=== PATIENT | female | born 1930 | race Caucasian/White ===

== ENCOUNTER 2017-06-18 08:24 | Inpatient (IN) | payer MEDICAID, OTHER ==
[~2017-06-18 08:24] MED LIST: NS 1000 ML 1,000 ML ONE
[2017-06-18 08:39] VITALS: BMI 14.5
--- NOTE | 2017-06-18 08:39 | DR.GENAD ---
HPI - HPI Comment HPI Comment: FELL AT HOME MONDAY. SHE IS NOT ABLE TO GET UP AND GO SINCE FALL. SHE IS WEAK. PATIENT IS BLIND. - Complaint/Symptoms Chief Complaint Doctors Comments: FALL, LOWER BACK PAIN. - Nurses notes reviewed Nurses Notes Review: Yes - Source History Provided: Patient, EMS - Mode of Arrival Mode of Arrival: Stretcher - Timing Came on: Suddenly - Duration Duration: Constant Duration: Days - Severity Severity: Moderate PMH - PMH Past Medical History: Arthritis, Hypertension Past Surgical History: Yes Surgical History: Appendectomy - Family History Family Medical History: Cancer, Hypertension - Social History Do you use any recreational Drugs:: No ROS - Review of Systems Constitutional: Weakness, Fatigue. negative: Chills, Fever Eyes: Other (BLIND). negative: Eye Pain, Discharge ENTM: Hearing Loss (DECREASE HEARING.). negative: Nose Discharge, Nose Congestion, Throat Pain Respiratoy: Short of Breath (ON EXERTION). negative: Productive Cough, Non- Productive Cough, Wheezing, Hemoptysis Cardiovascular: Palpitations. negative: Edema Gastrointestinal/Abdominal: negative: Abdominal Pain, Diarrhea, Nausea, Vomiting Genitourinary: negative: Dysuria, Hematuria Neurological: Weakness, Dizziness Musculoskeletal: Back Pain, Muscle Pain, Back Integumentary: negative: Rash, Bruises Hematologic/Lymphatic: No Symptoms Reported Endocrine: No Symptoms Reported All Other Systems: Reviewed and Negative PE - Vital Signs Vitals: Temperature 98.4 F Pulse Rate 128 Respiratory Rate 19 Blood Pressure [Left Arm] 129/60 Blood Pressure [Right Arm] 130/58 Blood Pressure 129/93 O2 Sat by Pulse Oximetry 98 - General Limitations: Altered Mental Status General Appearance: Alert - Head Head Exam: Normal Inspection - Eyes Eye exam: Normal Appearance, Other (BLINDNESS). negative: Scleral Icterus, Conjunctival Injection, Periorbital Swelling, Periorbital Tenderness - ENT ENT Exam: Normal External Ear Exam, Other (DECREASE HEARING.) TM/Canal Exam: Bilateral Normal Nose Exam: Normal Nose Exam Mouth Exam: Normal Inspection Throat Exam: Normal Inspection - Neck Neck Exam: Trachea Midline, Tenderness, Meningismus - Chest Chest Inspection: Symmetric Chest Wall Rise - Respiratory Respiratory Exam: Normal Lung Sounds Bilat Respiratory Exam: Bilateral Rhonchi, Lower Rhonchi - Cardiovascular Cardiovascular Exam: Tachycardia - Abdominal Exam Abdominal Exam: Normal Bowel Sounds, Soft, Other (BLADDER DISTENDED) - Extremities Extremities Exam: Normal Inspection - Back Back Exam: Paraspinal Tenderness (LOWER BACK), Vertebral Tenderness (LOWER BACK) - Neurologic Neurological Exam: Alert, Oriented X3 - Psychiatric Psychiatric Exam: Anxious - Skin Skin Exam: Dry MDM - Differential Diagnosis Differential Diagnosis: DEHYDRATION, TN, CVA, Course - Treatment Treatment: SEE ORDERS. - Education/Counseling Education/Counseling: Patient, Education Educated On: Diagnosis ROR - Labs Reviewed Result Diagrams: 06/19/17 05:25 06/19/17 04:00 - XRAY XRAY Interpreted by: Radiologist XRAY Findings: REPORT DISCUSS WITH PATIENT. - EKG Rhythm: ST (EKG NOTED.) - Diagnosis Discharge Problem: Generalized weakness, Dehydration, Hypokalemia, Abnormal cardiac enzyme level Lower back pain Qualifiers: Chronicity: acute Back pain laterality: bilateral Sciatica presence: without sciatica Qualified Code(s): M54.5 - Low back pain - Discharge Plan Disposition: ADMITTED INPATIENT Condition: Stable - Follow ups/Referrals - Instructions
[2017-06-18 08:59] LABS: BASOPHILS # (AUTO) 0.1 X10^3/uL (0.0-0.1); BASOPHILS % (AUTO) 1.5 % (0.2-1.0); EOSINOPHILS % (AUTO) 0.1 % (0.9-2.9); HEMATOCRIT 45.2 % (36.0-47.0); HEMOGLOBIN 15.3 g/dL (12.0-16.0); LYMPHOCYTES # (AUTO) 1.2 X10^3/uL (1.3-2.9); LYMPHOCYTES % (AUTO) 15.3 % (21.0-51.0); MEAN CORPUSCULAR HEMOGLOBIN 29.8 pg (27.0-34.0); MEAN CORPUSCULAR HGB CONC 33.8 g/dL (33.0-35.0); MEAN PLATELET VOLUME 7.7 fL (7.4-11.0); MONOCYTES # (AUTO) 0.6 x10^3/uL (0.3-0.8); MONOCYTES % (AUTO) 8.3 % (0.0-13.0); NEUTROPHILS # (AUTO) 5.8 x10^3/uL (2.2-4.8); NEUTROPHILS % (AUTO) 74.8 % (42.0-75.0); PLATELET COUNT 356 X10^3/uL (150.0-450.0); RED BLOOD COUNT 5.13 X10^6/uL (3.5-5.4); RED CELL DISTRIBUTION WIDTH 13.4 % (11.6-16.5); WHITE BLOOD COUNT 7.7 X10^3/uL (3.6-10.0)
[2017-06-18 09:16] LABS: BILIRUBIN,URINE NEGATIVE (NEGATIVE); BLOOD/HEMOGLOBIN,URINE 2+ (NEGATIVE); GLUCOSE, URINE NEGATIVE (NEGATIVE); KETONES,URINE 4+ (NEGATIVE); LEUKOCYTE ESTERASE ,URINE NEGATIVE (NEGATIVE); NITRITES,URINE NEGATIVE (NEGATIVE); PROTEIN,URINE 3+ (NEGATIVE); UROBILINOGEN,URINE 1+ (NORMAL)
[2017-06-18 09:23] LABS: APPEARANCE,URINE CLEAR (CLEAR); BACTERIA,URINE NEGATIVE /HPF (NEGATIVE); COLOR,URINE YELLOW (YELLOW); RBC,URINE RARE /HPF (NEGATIVE); SQUAMOUS EPITHELIAL CELL,UR NEGATIVE /HPF (NEGATIVE)
[2017-06-18 09:24] LABS: MUCUS,URINE FEW /HPF (NEGATIVE)
[2017-06-18 09:34] LABS: ALANINE AMINOTRANSFERASE 23 Units/L (12-78); ALBUMIN 4.2 g/dL (3.4-5.0); ALKALINE PHOSPHATASE 72 Units/L (46-116); ASPARTATE AMINO TRANSFERASE 41 Units/L (15-37); BLOOD UREA NITROGEN 23 mg/dL (7-18); CALCIUM 10.1 mg/dL (8.5-10.1); CARBON DIOXIDE 16.3 mmol/L (21-32); CHLORIDE 110 mmol/L (98-107); CREATINE KINASE 132 Units/L (26-192); CREATININE 1.31 mg/dL (0.55-1.02); SODIUM 149 mmol/L (136-145); TOTAL PROTEIN 8.7 g/dL (6.4-8.2); TROPONIN I 0.05 ng/mL (0-1.5); eGFR BLACK RACES 50 (>60); eGFR NON BLACK RACES 41 (>60)
[2017-06-18 09:40] LABS: CREATINE KINASE MB 5.3 ng/mL (0-4.0)
--- NOTE | 2017-06-18 10:59 | CT ---
HISTORY: Fall, pain Study: CT brain without contrast Comparison: 04/07/2013 Technique: Multiple axial images of the brain were obtained from the skull base to the vertex without administra tion of IV contrast. Dose reduction techniques including Automated Exposure Control (AEC) and adjust ment of mA and kV were utilized. Findings: The exam is limited by patient's condition. There is chronic atrophy and nonspecific white matter hyp oattenuation likely related to microvascular ischemic changes. No evidence of acute hemorrhage, midl ine shift, mass effect or abnormal extra-axial fluid collection. The ventricular system is symmetric and nondilated. The soft tissues and osseous structures are unremarkable. The visualized paranasal sinuses are clear. IMPRESSION: 1.No acute intracranial abnormality. Reported By:
[2017-06-18] MEDS ORDERED: NS 1000 ML 1,000 ML IV SCH (11:00)
--- NOTE | 2017-06-18 11:03 | CT ---
HISTORY: Pain after fall Study: CT lumbar spine without contrast Comparison: Radiograph 12/01/2015 Technique: Multiple axial images of the lumbar spine without the administration of IV contrast. Sag ittal and coronal reformats were performed and reviewed. Dose reduction techniques including Automat ed Exposure Control (AEC) and adjustment of mA and kV were utilized. Findings: Alignment of the lumbar spine is maintained. There are chronic superior endplate depressions at T12, L1, and L5. The remaining vertebral body heights are preserved. The disc spaces are maintained.No s ignificant facet joint arthropathy. Prominent atherosclerotic disease of the aorta is noted. There i s a Nava catheter in place. IMPRESSION: 1. Chronic endplate depressions at T12, L1, and L5. No acute abnormality identified. Reported By:
--- NOTE | 2017-06-18 12:45 | RAD ---
Examination: Portable AP chest History: Fell, pain Findings: Transverse heart diameter is normal. There is a diffuse interstitial increase throughout valdo th lungs. There is no evidence for pneumothorax, superimposed consolidation or large pleural effusion . The mediastinum is not widened or deformed. The thoracic aorta is arteriosclerotic. Impression: Degenerative and age related findings. Bilateral interstitial process is consistent with chronic peribronchial thickening. Reported By:
--- NOTE | 2017-06-18 12:56 | RAD ---
Examination: Portable AP pelvis History: Fell Findings: A frontal view of the pelvis demonstrates no evidence for fracture, hip deformity, bone dinesh truction or pelvic asymmetry. Normal appearance of sacroiliac joints and symphysis pubis. The pelvic soft tissues are unremarkable. Impression: No acute injury identified. Specific hip views should be considered if clinically appropr iate. Reported By:
[2017-06-18 16:20] LABS: CKMB % 4.2 % (<4); TROPONIN I 0.07 ng/mL (0-1.5)
[2017-06-18 16:29] LABS: CREATINE KINASE MB 4.5 ng/mL (0-4.0)
[2017-06-18] MEDS: NS 1000 ML 1,000 ML IV SCH (16:38)
[2017-06-18 21:10] LABS: CKMB % 3.7 % (<4); CREATINE KINASE MB 3.8 ng/mL (0-4.0); TROPONIN I 0.07 ng/mL (0-1.5)
[2017-06-19] MEDS: NS 1000 ML 1,000 ML IV SCH ×4 (00:11→17:26)
[2017-06-19 04:31] LABS: BLOOD UREA NITROGEN 14 mg/dL (7-18); CALCIUM 8.4 mg/dL (8.5-10.1); CARBON DIOXIDE 23.8 mmol/L (21-32); COR NA(FOR HYPERGLY) 148 mmol/L (136-145); CREATININE 0.96 mg/dL (0.55-1.02); SODIUM 148 mmol/L (136-145); eGFR BLACK RACES > 60 (>60); eGFR NON BLACK RACES 59 (>60)
[2017-06-19 04:40] LABS: CHLORIDE 117 mmol/L (98-107)
[2017-06-19 05:01] LABS: ALANINE AMINOTRANSFERASE 16 Units/L (12-78); ALBUMIN 2.7 g/dL (3.4-5.0); ALKALINE PHOSPHATASE 47 Units/L (46-116); ASPARTATE AMINO TRANSFERASE 27 Units/L (15-37); COR CA(FOR HYPOALB) 9.4 mg/dL (8.5-10.1); MAGNESIUM 1.6 mg/dL (1.7-2.9); TOTAL PROTEIN 5.9 g/dL (6.4-8.2)
[2017-06-19] MEDS ORDERED: K-LYTE EFFERVESCENT PO PRN ×2 (05:31→12:22)
[2017-06-19] MEDS ORDERED: K-RIDER 10 MEQ/NS 100 ML 10 MEQ/100 ML BAG IV PRN (05:31)
[2017-06-19] MEDS ORDERED: POTASSIUM CHLORIDE LIQ 20 MEQ UDC PO PRN ×2 (05:31→12:22)
[2017-06-19] MEDS ORDERED: POTASSIUM CHL 40 MEQ/NS 0.45% 500 ML IV NR (06:00)
[2017-06-19] MEDS ORDERED: POTASSIUM CHL 60 MEQ/NS 0.45% 500 ML IV NR (06:00)
[2017-06-19] MEDS: MAG-OX TAB PO PRN (06:06)
[2017-06-19 06:11] LABS: BASOPHILS # (AUTO) 0.1 X10^3/uL (0.0-0.1); BASOPHILS % (AUTO) 0.8 % (0.2-1.0); EOSINOPHILS # (AUTO) 0.2 x10^3/uL (0.0-0.2); EOSINOPHILS % (AUTO) 2.8 % (0.9-2.9); HEMATOCRIT 34.7 % (36.0-47.0); LYMPHOCYTES # (AUTO) 1.3 X10^3/uL (1.3-2.9); LYMPHOCYTES % (AUTO) 20.8 % (21.0-51.0); MEAN CORPUSCULAR HEMOGLOBIN 30.2 pg (27.0-34.0); MEAN CORPUSCULAR HGB CONC 34.5 g/dL (33.0-35.0); MEAN CORPUSCULAR VOLUME 87.4 fL (80.0-100.0); MEAN PLATELET VOLUME 7.6 fL (7.4-11.0); MONOCYTES # (AUTO) 0.7 x10^3/uL (0.3-0.8); NEUTROPHILS # (AUTO) 4.1 x10^3/uL (2.2-4.8); NEUTROPHILS % (AUTO) 64.6 % (42.0-75.0); PLATELET COUNT 227 X10^3/uL (150.0-450.0); RED BLOOD COUNT 3.97 X10^6/uL (3.5-5.4); RED CELL DISTRIBUTION WIDTH 13.4 % (11.6-16.5); WHITE BLOOD COUNT 6.3 X10^3/uL (3.6-10.0)
[2017-06-19] MEDS ORDERED: POTASSIUM CHL 40 MEQ/NS 0.45% 500 ML IV PRN (12:22)
[2017-06-19] MEDS ORDERED: POTASSIUM CHL 60 MEQ/NS 0.45% 500 ML IV PRN (12:22)
[2017-06-19] MEDS: MAGNESIUM SULFATE 1 GM/100 mL PREMIX 1 GM/100 ML BAG IV PRN ×2 (12:29→13:28)
[2017-06-19] MEDS: K-RIDER 10 MEQ/NS 100 ML 10 MEQ/100 ML BAG IV PRN ×3 (13:28→16:17)
--- NOTE | 2017-06-19 17:26 | CT ---
HISTORY: Pain. Study: CT cervical and thoracic spine without contrast Comparison: Thoracic spine and cervical spine series dating back to December 01, 2015. Technique: Multiple axial images of the cervical and thoracic spine without administration of IV con trast. Sagittal and coronal reformats were performed and reviewed. Dose reduction techniques includi ng Automated Exposure Control (AEC) and adjustment of mA and kV were utilized. Findings: Severe reversal of the normal cervical lordosis, which may represent positioning versus muscle spasm. Multilevel moderate to severe degenerative changes of the cervical and thoracic spine. Remote compre ssion fractures of T11 and T12. No acute fracture or listhesis. Multilevel mild to severe neural fora patricia narrowing of the cervical spine. No significant neural foraminal narrowing of the thoracic spin e. No significant spinal canal stenosis. Vascular calcifications are seen of the carotid arteries. Bi apical scarring. 6 mm right upper lobe ground-glass opacity (series 8, image 48). Bibasilar scarring versus atelectasis. No suspicious pulmonary nodule, mass, focal consolidation, pleural effusion, or p neumothorax. Cardiomegaly with severe atherosclerotic vascular calcifications of the coronary arterie s. Remaining mediastinum is unremarkable. The left kidney is small, which may represent chronic renal disease. 2.9 cm simple appearing cysts within the right superior renal pole. 3.0 cm simple cyst with in the visualized left hepatic lobe. Remaining upper abdominal structures are unremarkable. IMPRESSION: 1. No acute osseous abnormality. 2. Chronic findings as above. 3. 6 mm right upper lobe ground-glass opacity. Recommend follow-up CT of the chest in 2-3 months to d ocument stability/resolution. 4. Other chronic findings as above. Reported By:
[2017-06-20] MEDS: NS 1000 ML 1,000 ML IV SCH (03:18)
[2017-06-20 06:11] LABS: ALANINE AMINOTRANSFERASE 25 Units/L (12-78); ALBUMIN 2.3 g/dL (3.4-5.0); ALKALINE PHOSPHATASE 46 Units/L (46-116); ASPARTATE AMINO TRANSFERASE 43 Units/L (15-37); BLOOD UREA NITROGEN 9 mg/dL (7-18); CALCIUM 7.7 mg/dL (8.5-10.1); CARBON DIOXIDE 22.1 mmol/L (21-32); COR CA(FOR HYPOALB) 9.1 mg/dL (8.5-10.1); CREATININE 0.67 mg/dL (0.55-1.02); MAGNESIUM 1.7 mg/dL (1.7-2.9); SODIUM 146 mmol/L (136-145); TOTAL PROTEIN 5.3 g/dL (6.4-8.2); eGFR BLACK RACES > 60 (>60); eGFR NON BLACK RACES > 60 (>60)
[2017-06-20 06:15] LABS: CHLORIDE 116 mmol/L (98-107)
[2017-06-20 06:27] LABS: BASOPHILS # (AUTO) 0.1 X10^3/uL (0.0-0.1); BASOPHILS % (AUTO) 0.8 % (0.2-1.0); EOSINOPHILS # (AUTO) 0.2 x10^3/uL (0.0-0.2); EOSINOPHILS % (AUTO) 3.3 % (0.9-2.9); HEMATOCRIT 31.3 % (36.0-47.0); HEMOGLOBIN 11.1 g/dL (12.0-16.0); LYMPHOCYTES # (AUTO) 1.5 X10^3/uL (1.3-2.9); LYMPHOCYTES % (AUTO) 22.6 % (21.0-51.0); MEAN CORPUSCULAR HEMOGLOBIN 30.6 pg (27.0-34.0); MEAN CORPUSCULAR HGB CONC 35.4 g/dL (33.0-35.0); MEAN CORPUSCULAR VOLUME 86.5 fL (80.0-100.0); MEAN PLATELET VOLUME 7.9 fL (7.4-11.0); MONOCYTES # (AUTO) 0.7 x10^3/uL (0.3-0.8); MONOCYTES % (AUTO) 10.1 % (0.0-13.0); NEUTROPHILS # (AUTO) 4.2 x10^3/uL (2.2-4.8); NEUTROPHILS % (AUTO) 63.2 % (42.0-75.0); PLATELET COUNT 194 X10^3/uL (150.0-450.0); RED BLOOD COUNT 3.62 X10^6/uL (3.5-5.4); RED CELL DISTRIBUTION WIDTH 13.5 % (11.6-16.5); WHITE BLOOD COUNT 6.7 X10^3/uL (3.6-10.0)
[2017-06-20] MEDS: K-RIDER 10 MEQ/NS 100 ML 10 MEQ/100 ML BAG IV PRN ×2 (06:37→15:31)
[2017-06-20] MEDS ORDERED: NS 1/2 1000 ML IV 1,000 ML IV ONE (18:09)
[2017-06-20] MEDS: NS 1/2 1000 ML IV 1,000 ML IV SCH (18:12)
[2017-06-20] MEDS: LOPRESSOR TAB 25 MG PO SCH (20:46)
[2017-06-21] MEDS ORDERED: NS 1/2 1000 ML IV 1,000 ML IV ONE (01:28)
[2017-06-21] MEDS: NS 1/2 1000 ML IV 1,000 ML IV SCH ×2 (02:09→15:33)
[2017-06-21 05:40] LABS: BASOPHILS % (AUTO) 0.4 % (0.2-1.0); EOSINOPHILS # (AUTO) 0.3 x10^3/uL (0.0-0.2); EOSINOPHILS % (AUTO) 4.4 % (0.9-2.9); HEMATOCRIT 32.5 % (36.0-47.0); HEMOGLOBIN 11.6 g/dL (12.0-16.0); LYMPHOCYTES # (AUTO) 1.4 X10^3/uL (1.3-2.9); LYMPHOCYTES % (AUTO) 19.3 % (21.0-51.0); MEAN CORPUSCULAR HEMOGLOBIN 30.6 pg (27.0-34.0); MEAN CORPUSCULAR HGB CONC 35.6 g/dL (33.0-35.0); MEAN CORPUSCULAR VOLUME 86.1 fL (80.0-100.0); MONOCYTES # (AUTO) 0.7 x10^3/uL (0.3-0.8); MONOCYTES % (AUTO) 9.9 % (0.0-13.0); NEUTROPHILS # (AUTO) 4.9 x10^3/uL (2.2-4.8); PLATELET COUNT 182 X10^3/uL (150.0-450.0); RED BLOOD COUNT 3.78 X10^6/uL (3.5-5.4); RED CELL DISTRIBUTION WIDTH 13.5 % (11.6-16.5); WHITE BLOOD COUNT 7.5 X10^3/uL (3.6-10.0)
[2017-06-21 05:43] LABS: ALANINE AMINOTRANSFERASE 32 Units/L (12-78); ALBUMIN 2.3 g/dL (3.4-5.0); ALKALINE PHOSPHATASE 53 Units/L (46-116); ASPARTATE AMINO TRANSFERASE 46 Units/L (15-37); BLOOD UREA NITROGEN 7 mg/dL (7-18); CALCIUM 7.7 mg/dL (8.5-10.1); CARBON DIOXIDE 24.4 mmol/L (21-32); CHLORIDE 109 mmol/L (98-107); COR CA(FOR HYPOALB) 9.1 mg/dL (8.5-10.1); CREATININE 0.68 mg/dL (0.55-1.02); SODIUM 142 mmol/L (136-145); TOTAL PROTEIN 5.4 g/dL (6.4-8.2); eGFR BLACK RACES > 60 (>60); eGFR NON BLACK RACES > 60 (>60)
[2017-06-21] MEDS: K-RIDER 10 MEQ/NS 100 ML 10 MEQ/100 ML BAG IV PRN ×4 (06:06→09:07)
[2017-06-21] MEDS: LOPRESSOR TAB 25 MG PO SCH (08:34)
[2017-06-21] MEDS: MAG-OX TAB PO PRN (08:35)
[2017-06-21] MEDS ORDERED: DULCOLAX SUPPOSITORY 10 MG RECTAL ONE (10:26)
[2017-06-21 16:06] VITALS: BP 144/65
== END 2017-06-21 16:10 | DRG 641 ==
LOC: ER 08:24 → MED/SURG 13:29
PROVIDERS: ADMIT Internal Medicine; ATTEND Internal Medicine
DX: E86.0 Dehydration (principal); R53.1 Weakness; W18.39XA Other fall on same level, initial encounter; M54.5 Low back pain; I10 Essential (primary) hypertension; M13.80 Other specified arthritis, unspecified site; R06.02 Shortness of breath; E87.6 Hypokalemia; R94.31 Abnormal electrocardiogram [ECG] [EKG]; M47.22 Other spondylosis with radiculopathy, cervical region; R62.7 Adult failure to thrive; R94.4 Abnormal results of kidney function studies; R26.89 Other abnormalities of gait and mobility; H54.7 Unspecified visual loss
CPT/HCPCS: 36415; 70450; 71010; 72125; 72128; 72131; 72170; 80053; 81001; 82550; 82553; 83735; 84132; 84484; 85025; 85610; 85730; 93005; 94760; 96365; 96367; 96374; 97535; 99221; 99284; A4216; A4222; J3480

== ENCOUNTER 2017-10-21 13:02 | Emergency (ER) | payer OTHER ==
[2017-10-21 13:08] VITALS: BP 149/66; BMI 21.4
--- NOTE | 2017-10-21 13:31 | DR.AMS ---
HPI - Time Seen Time seen: 13:20 - PCP Primary Care Physician: ARRON - Complaint Cheif Complaint Doctors Comments: I agree with statement as written Chief Complaint:: DELIA FROM X-RAY CALLS AND STATES PT. WAS HAVING A CHEST X- RAY PERFORMED AND BECAME UNRESPONSIVE ON THEM. HE STATES THEY STOOD PT. UP TO PERFORM ONE VIEW OF CHEST AND WENT TO DO SECOND VIEW AND SHE WOULDN'T RESPOND. UPON ARRIVAL TO ER, PT'S HEAD IS SLUMPED OVER IN THE WHEELCHAIR, C-COLLAR ON PT , BUT NOT IN PROPER PLACEMENT. STERNAL RUB WAS PERFORMED PER Salima FAJARDO LPN, AND PT. GRUNTED. - Source History Provided: Bystander - Mode of Arrival Mode of Arrival: Wheelchair - Timing Onset of Chief Complaint: 10/21/17 PMH - PMH Past Medical History: Yes Past Medical History: Arthritis, Hypertension Past Surgical History: Yes Surgical History: Appendectomy - Family History History of Family Medical Conditions: Yes Family Medical History: Cancer, Hypertension - Social History Does patient currently use any type of tobacco product: No Have you used tobacco products in the last 12 months: No Type of Tobacco Use: None Does any household member use tobacco: No Alcohol Use: None Do you use any recreational Drugs:: No Lives Where: [place] - infectious screening In the last 2 months have you had wt loss of >10#?: NO Have you had fever, night sweats or hemotysis?: No Have you traveled outside the country in the last 6 months?: No Isolation: Standard ROS - Review of Systems Eyes: No Symptoms Reported ENTM: No Symptoms Reported Respiratoy: No Symptoms Reported Cardiovascular: No Symptoms Reported Gastrointestinal/Abdominal: No Symptoms Reported Genitourinary: No Symptoms Reported Neurological: No Symptoms Reported Musculoskeletal: No Symptoms Reported Integumentary: No Symptoms Reported Hematologic/Lymphatic: No Symptoms Reported Endocrine: No Symptoms Reported Psychiatric: No Symptoms Reported All Other Systems: Reviewed and Negative PE - Vitals Vital Signs: Temp Pulse Resp BP BP BP Pulse Ox 10/21/17 13:03 97.6 F 68 16 149/66 95 06/21/17 16:00 144/65 144/65 06/20/17 16:00 162/68 - General General Appearance: Alert - Head Head Exam: Normal Inspection Head Exam Physical: negative: Laceration, Abrasion, Contusion, Hematoma, Raccoon Eyes, Naranjo's Sign, Tenderness of Temporal Artery, CSF Rhinorrhea, CSF Otorrhea, Other - Eyes Eye exam: Normal Appearance Pupils: Regular, Round: Bilateral - ENT ENT Exam: Normal Exam External Ear Exam: Normal External Inspection TM/Canal Exam: Bilateral Normal Nose Exam: Normal Nose Exam Mouth Exam: Normal Inspection Throat Exam: Normal Inspection - Neck Neck Exam: Normal Inspection (held in flexion) - Chest Chest Inspection: Normal Inspection - Respiratory Respiratory Exam: Normal Lung Sounds Bilat Respiratory Exam: Bilateral Clear to Auscultation - Cardiovascular Cardiovascular Exam: Regular Rate, Normal Rhythm - Abdominal Exam Abdominal Exam: Normal Inspection Abdominal Tenderness: negative: RUQ, RLQ, LUQ, LLQ, Epigastrium, Suprapubic, Diffuse, Mild, Moderate, Severe, Other - Extremities Extremities Exam: Normal Inspection - Back Back Exam: Normal Inspection, Full ROM - Neurological Neurological Exam: Alert, Oriented X3, CN II-XII Intact Speech: Other (non responsive selectively) Upper Motor Neuron Exam: Kwame Neglect: Normal Sensory Exam Upper Extremity: Light Touch: Normal - Psychological Psychiatric Exam: Other (selectively non responsive to questions) Expanded Psychiatric Exam: Refuses to Answer - Skin Skin Exam: Warm, Dry, Intact Course - Reevaluation 1st: Unchanged ROR - XRAY XRAY Interpreted by: Radiologist (Ct head w/o: No definite evidence of an acute intracranial process.If clinical concern persists for acute stroke, consider MRI /MRA brain. Moderate microvasculat white matter ischemic changes, with associated volume loss. Small fluid level right maxillary sinus with mucosal thickening left maxillary sinus. Chest: No acute cardiopulmonary disease) - EKG Compared to prior EKG Dated: 06/18/17 (SR borderline T wavw abnormalitite anterior leads, borderline ST elevation ant leads.(06/18/17. Today 10/21/17:SR 75 , ventriculat trigeminy, LVH by voltage, Baseline wander in leads(s)v2) [place]: Normal Hypertrophy: LVH - Diagnosis Discharge Problem: Left maxillary sinusitis, Ventricular trigeminy, Normal cardiac enzyme levels - Discharge Plan Condition: Stable - Follow ups/Referrals Follow ups/Referrals: Kranthi Cleaning [Primary Care Provider] - 3 days - Instructions
--- NOTE | 2017-10-21 14:05 | CT ---
CT HEAD WITHOUT CONTRAST CLINICAL HISTORY: 86-year-old female with altered mental status. COMPARISON: CT head 06/18/2017. TECHNIQUE: Multiple, non-contrasted axial CT images were obtained from the skull base to the cranial vertex. Coronal and sagittal reformats were performed. FINDINGS: There are no abnormal intra- or extra-axial fluid collections, midline shift, or mass effec t. Lewis-white differentiation is normal. Partially empty sella. Global cortical involutional changes are present that are advanced for the patient's stated age. The ventricular system is mildly enlarged but commensurate with the degree of sulcal prominence. Periventricular and supraventricular white ma tter hypodensity is present that is nonspecific in appearance, but most likely to represent microvasc ular ischemic changes. Atherosclerotic vascular calcification is present within the carotid siphons a nd distal vertebral arteries. Small fluid level right maxillary sinus with trace mucosal thickening of the left maxillary sinus. Th e remaining imaged paranasal sinuses, mastoid air cells, and tympanic spaces are clear. IMPRESSION: 1. No definite evidence of an acute intracranial process. If clinical concern persists for acute stro ke, consider MRI/MRA brain. 2. Moderate microvascular white matter ischemic changes, with associated volume loss. 3. Small fluid level right maxillary sinus with mucosal thickening left maxillary sinus. Correlate fo r sinusitis. Reported By:
--- NOTE | 2017-10-21 14:06 | RAD ---
HISTORY: 86-year-old female with altered mental status. Study: Frontal view of the chest. Comparison: Chest radiograph 06/18/2017. Findings: Study is limited secondary to patient positioning with exclusion of the lung apices by the patient's head. The trachea is midline. The cardiac silhouette is stably enlarged with chronic prominence of the int erstitium and perihilar lung markings. The lungs are clear without focal consolidation, effusion or pneumothorax. Soft tissues are unremarkable. Osseous structures are unremarkable. IMPRESSION: 1. No acute cardiopulmonary disease. Reported By:
[2017-10-22] MEDS ORDERED: ZITHROMAX TAB 250 MG PO SCH (09:00)
== END 2017-10-21 14:50 ==
LOC: ER 13:04
DX: J32.0 Chronic maxillary sinusitis (principal); R00.8 Other abnormalities of heart beat; J06.9 Acute upper respiratory infection, unspecified; R94.31 Abnormal electrocardiogram [ECG] [EKG]; R41.82 Altered mental status, unspecified
CPT/HCPCS: 36415; 70450; 71045; 80053; 85025; 93005; 99282; 99284